=== PATIENT | male | born 1980 | race American Indian/Alaskan Native ===

== ENCOUNTER 2016-12-11 18:18 | Emergency (ER) | payer SELFPAY ==
[2016-12-11 18:56] VITALS: O2SAT 97
[2016-12-11] MEDS ORDERED: Lidocaine 2% Inj (20ml) ONE (19:22)
[2016-12-11] MEDS ORDERED: Bacitracin 500 Units/gm Oint Foilpak UD ONE (19:51)
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
[2016-12-11 20:19] VITALS: BP 148/86; PULSE 74; RESP 18; TEMP 97.8
== END 2016-12-11 20:36 | disposition home or self-care (01) ==
LOC: C.ER 18:18
DX: S61.011A Laceration without foreign body of right thumb without damage to nail, initial encounter (principal); V49.59XA Passenger injured in collision with other motor vehicles in traffic accident, initial encounter; Y92.410 Unspecified street and highway as the place of occurrence of the external cause

== ENCOUNTER 2016-12-21 12:34 | Emergency (ER) | payer SELFPAY ==
[2016-12-21 12:42] VITALS: BP 148/81; PULSE 86; RESP 18; TEMP 98.6; O2SAT 100; BMI 21.4
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
== END 2016-12-21 13:25 | disposition home or self-care (01) ==
LOC: C.ER 12:34
DX: Z48.02 Encounter for removal of sutures (principal)